=== PATIENT | male | born 1985 | race Hispanic/Latino ===

== ENCOUNTER 2021-07-27 11:54 | Emergency (ER) | payer BC ==
[2021-07-27 13:48] LABS: Basophils % (Auto) 0.1 % (0.0-1.8); Hematocrit 37.3 % (35.5-45.6); Hemoglobin 12.6 gm/dl (11.8-15.2); Lymphocytes % (Auto) 8.6 % (13.4-35.0); Mean Corpuscular HGB Conc 34 % (32-34); Mean Corpuscular Volume 87 fl (84-94); Monocytes # (Auto) 0.3 K/mm3 (0.0-0.8); Monocytes % (Auto) 2.8 % (0.0-7.3); Platelet Count 214 K/mm3 (140-440); Red Blood Count 4.28 M/mm3 (3.65-5.03); Red Cell Distribution Width 13.5 % (13.2-15.2)
[2021-07-27 14:10] LABS: Alanine Aminotransferase 19 units/L (7-56); Albumin 4.4 g/dL (3.9-5); BUN/Creatinine Ratio 14; Blood Urea Nitrogen 10 mg/dL (9-20); Calcium 9.3 mg/dL (8.4-10.2); Hemolysis Index 3
[2021-07-28 06:25] VITALS: BP 155/124
== END 2021-07-28 05:49 | disposition left against medical advice (07) ==
LOC: ED 11:54
DX: K92.0 Hematemesis (principal); Z53.21 Procedure and treatment not carried out due to patient leaving prior to being seen by health care provider
CPT/HCPCS: 36415; 80053; 83690; 85025

== ENCOUNTER 2021-07-28 05:43 | Emergency (ER) | payer BC ==
[2021-07-28] MEDS ORDERED: ONDANSETRON 4 MG/2 ML INJ IV ONE (14:28)
[2021-07-28] MEDS ORDERED: SODIUM CHLORIDE 0.9% 1000 ML 1,000 ML IV ONE (14:28)
[2021-07-28] MEDS ORDERED: FAMOTIDINE 20 MG/2 ML INJ IV ONE (14:28)
[2021-07-28] MEDS ORDERED: MORPHINE 4 MG/1 ML INJ IV ONE (14:28)
[2021-07-28 14:58] LABS: Basophils % (Auto) 0.3 % (0.0-1.8); Hematocrit 41.3 % (35.5-45.6); Hemoglobin 14.2 gm/dl (11.8-15.2); Lymphocytes % (Auto) 7.7 % (13.4-35.0); Mean Corpuscular HGB Conc 34 % (32-34); Mean Corpuscular Volume 87 fl (84-94); Monocytes # (Auto) 0.5 K/mm3 (0.0-0.8); Monocytes % (Auto) 4.2 % (0.0-7.3); Platelet Count 264 K/mm3 (140-440); Red Blood Count 4.77 M/mm3 (3.65-5.03); Red Cell Distribution Width 14.2 % (13.2-15.2)
[2021-07-28 15:24] LABS: Bilirubin,Urine NEG (Negative); Blood,Urine NEG (Negative); Color,Urine Yellow (Yellow); Protein,Urine <15 mg/dL mg/dL (Negative); Urobilinogen,Urine < 2.0 mg/dL (<2.0)
[2021-07-28 15:25] LABS: Mucus,Urine FEW /HPF
[2021-07-28 15:42] VITALS: BP 122/80
[2021-07-28 16:25] LABS: BUN/Creatinine Ratio TNR; Bilirubin,Direct TNR mg/dL (0-0.2); Blood Urea Nitrogen TNR mg/dL (9-20); Calcium TNR mg/dL (8.4-10.2)
[2021-07-28 16:26] LABS: Alanine Aminotransferase TNR units/L (7-56); Albumin TNR g/dL (3.9-5)
[2021-07-28 16:27] LABS: Hemolysis Index TNR
--- NOTE | 2021-07-28 16:54 | Emergency Department Report ---
<REYNA DURON - Last Filed: 07/28/21 17:25> ED Abdominal Pain HPI - General Chief Complaint: Abdominal Pain Stated Complaint: VOMITING BLOOD Time Seen by Provider: 07/28/21 14:14 Source: patient Mode of arrival: Ambulatory Limitations: No Limitations - History of Present Illness Initial Comments: This is a 36-year-old male nontoxic, well nourished in appearance, no acute signs of distress presents to the ED with c/o of nausea and vomiting and abdominal pain several days. Patient describes vomiting as food content and yellow gastric acid and dark blood seen. Patient describes abdominal pain as cramping and aching with level of 8/10 diffuse. Stated has these symptoms during IBS flare. Patient denies chest pain, short of breath, fever, blood in stool, chills, headache, stiff neck, numbness or tingling. Denies any blood in stool. Patient denies any recent travels. Denies any allergies. MD Complaint: abdominal pain -: days(s) Location: diffuse Radiation: none Migration to: no migration Severity scale (0 -10): 8 Quality: cramping, aching Consistency: constant Improves With: nothing Worsens With: nothing Associated Symptoms: nausea, vomiting, hematemesis. denies: diarrhea, fever, chills, constipation, dysuria, hematochezia, melena, hematuria, anorexia, syncope - Related Data Previous Rx's Medication Instructions Recorded Last Taken Type Ondansetron [Zofran Odt] 4 mg PO Q8HR #20 tab.rapdis 07/28/21 Unknown Rx Allergies Allergy/AdvReac Type Severity Reaction Status Date / Time No Known Allergies Allergy Verified 07/27/21 12:24 ED Review of Systems Comment: All other systems reviewed and negative Constitutional: denies: chills, fever Eyes: denies: eye pain, eye discharge, vision change ENT: denies: ear pain, throat pain Respiratory: denies: cough, shortness of breath, wheezing Cardiovascular: denies: chest pain, palpitations Endocrine: no symptoms reported Gastrointestinal: abdominal pain, nausea, vomiting, hematemesis. denies: diarrhea, constipation, melena, hematochezia Genitourinary: denies: urgency, dysuria Musculoskeletal: denies: back pain, joint swelling, arthralgia Skin: denies: rash, lesions Neurological: denies: headache, weakness, paresthesias Psychiatric: denies: anxiety, depression Hematological/Lymphatic: denies: easy bleeding, easy bruising ED Past Medical Hx - Past Medical History Previous Medical History?: Yes Additional medical history: IBS - Surgical History Past Surgical History?: No - Social History Smoking Status: Unknown if ever smoked Substance Use Type: None - Medications Home Medications: Home Medications Medication Instructions Recorded Confirmed Last Taken Type Ondansetron [Zofran Odt] 4 mg PO Q8HR #20 tab.rapdis 07/28/21 Unknown Rx ED Physical Exam - General Limitations: No Limitations General appearance: alert, in no apparent distress - Head Head exam: Present: atraumatic, normocephalic - Eye Eye exam: Present: normal appearance - Neck Neck exam: Present: normal inspection, full ROM. Absent: lymphadenopathy - Respiratory Respiratory exam: Present: normal lung sounds bilaterally. Absent: respiratory distress, wheezes, rales, rhonchi, stridor, chest wall tenderness, accessory muscle use, decreased breath sounds, prolonged expiratory - Cardiovascular Cardiovascular Exam: Present: regular rate, normal rhythm, normal heart sounds. Absent: bradycardia, tachycardia, irregular rhythm, systolic murmur, diastolic murmur, rubs, gallop - GI/Abdominal GI/Abdominal exam: Present: soft, tenderness (diffuse), normal bowel sounds. Absent: distended, guarding, rebound, rigid, diminished bowel sounds - Extremities Exam Extremities exam: Present: normal inspection, full ROM, normal capillary refill. Absent: tenderness - Back Exam Back exam: Present: normal inspection, full ROM. Absent: tenderness, CVA tenderness (R), CVA tenderness (L), muscle spasm, paraspinal tenderness, vertebral tenderness, rash noted - Neurological Exam Neurological exam: Present: alert, oriented X3, normal gait - Psychiatric Psychiatric exam: Present: normal affect, normal mood - Skin Skin exam: Present: warm, dry, intact, normal color. Absent: rash ED Course - Reevaluation(s) Reevaluation #1: 07/28/21 16:54 Patient is speaking in full sentences with no signs of distress noted. - Consultations Consultation #1: 07/28/21 17:22 At this time patient is signed out to Nasreen Richards for further evaluation, treatment, and appropriate disposition. ED Medical Decision Making - Lab Data Result diagrams: 07/28/21 14:42 07/28/21 14:42 Lab Results 07/28/21 07/28/21 07/28/21 Range/Units 14:42 14:42 14:42 WBC 12.4 H (4.5-11.0) K/mm3 RBC 4.77 (3.65-5.03) M/mm3 Hgb 14.2 (11.8-15.2) gm/dl Hct 41.3 (35.5-45.6) % MCV 87 (84-94) fl MCH 30 (28-32) pg MCHC 34 (32-34) % RDW 14.2 (13.2-15.2) % Plt Count 264 (140-440) K/mm3 Lymph % (Auto) 7.7 L (13.4-35.0) % [place] % (Auto) 4.2 (0.0-7.3) % Eos % (Auto) 0.0 (0.0-4.3) % Baso % (Auto) 0.3 (0.0-1.8) % Lymph # (Auto) 1.0 L (1.2-5.4) K/mm3 [place] # (Auto) 0.5 (0.0-0.8) K/mm3 Eos # (Auto) 0.0 (0.0-0.4) K/mm3 Baso # (Auto) 0.0 (0.0-0.1) K/mm3 Seg Neutrophils % 87.8 H (40.0-70.0) % Seg Neutrophils # 10.9 H (1.8-7.7) K/mm3 Sodium TNR Potassium TNR Chloride TNR Carbon Dioxide TNR Anion Gap TNR BUN TNR Creatinine TNR Estimated GFR TNR BUN/Creatinine Ratio TNR Glucose TNR Calcium TNR Total Bilirubin TNR Direct Bilirubin TNR Indirect Bilirubin TNR AST TNR ALT TNR Alkaline Phosphatase TNR Total Protein TNR Albumin TNR Albumin/Globulin Ratio TNR Lipase 42 (13-60) units/L Urine Color (Yellow) Urine Turbidity (Clear) Urine pH (5.0-7.0) Ur Specific [place] (1.003-1.030) Urine Protein (Negative) mg/dL Urine Glucose (UA) (Negative) mg/dL Urine Ketones (Negative) mg/dL Urine Blood (Negative) Urine Nitrite (Negative) Urine Bilirubin (Negative) Urine Urobilinogen (<2.0) mg/dL Ur Leukocyte Esterase (Negative) Urine WBC (Auto) (0.0-6.0) /HPF Urine RBC (Auto) (0.0-6.0) /HPF Urine Mucus /HPF 07/28/21 Range/Units Unknown WBC (4.5-11.0) K/mm3 RBC (3.65-5.03) M/mm3 Hgb (11.8-15.2) gm/dl Hct (35.5-45.6) % MCV (84-94) fl MCH (28-32) pg MCHC (32-34) % RDW (13.2-15.2) % Plt Count (140-440) K/mm3 Lymph % (Auto) (13.4-35.0) % [place] % (Auto) (0.0-7.3) % Eos % (Auto) (0.0-4.3) % Baso % (Auto) (0.0-1.8) % Lymph # (Auto) (1.2-5.4) K/mm3 [place] # (Auto) (0.0-0.8) K/mm3 Eos # (Auto) (0.0-0.4) K/mm3 Baso # (Auto) (0.0-0.1) K/mm3 Seg Neutrophils % (40.0-70.0) % Seg Neutrophils # (1.8-7.7) K/mm3 Sodium Potassium Chloride Carbon Dioxide Anion Gap BUN Creatinine Estimated GFR BUN/Creatinine Ratio Glucose Calcium Total Bilirubin Direct Bilirubin Indirect Bilirubin AST ALT Alkaline Phosphatase Total Protein Albumin Albumin/Globulin Ratio Lipase (13-60) units/L Urine Color Yellow (Yellow) Urine Turbidity Clear (Clear) Urine pH 7.0 (5.0-7.0) Ur Specific [place] 1.012 (1.003-1.030) Urine Protein <15 mg/dl (Negative) mg/dL Urine Glucose (UA) Neg (Negative) mg/dL Urine Ketones Neg (Negative) mg/dL Urine Blood Neg (Negative) Urine Nitrite Neg (Negative) Urine Bilirubin Neg (Negative) Urine Urobilinogen < 2.0 (<2.0) mg/dL Ur Leukocyte Esterase Neg (Negative) Urine WBC (Auto) 1.0 (0.0-6.0) /HPF Urine RBC (Auto) 2.0 (0.0-6.0) /HPF Urine Mucus Few /HPF - Medical Decision Making 36-year-old male that presents with abdominal pain with nausea vomiting. Patient is stable and was examined by me. Vital signs at this time are stable. Patient signed out to Dr. Hanna during end of shift for further evaluation, treatment and appropriate disposition. At time of sign out, the patient does not seem toxic or ill in appearance. No acute signs of distress noted. Patient agrees to ED plan of care. No further questions noted by the patient. ED Disposition Clinical Impression: Nausea and vomiting, Abdominal pain, generalized Disposition: 01 HOME / SELF CARE / HOMELESS Condition: Stable Instructions: Nausea and Vomiting, Adult, Abdominal Pain, Adult, [id number] Referrals: PRIMARY CARE, [Primary Care Provider] - 3-5 Days <EMELY HANNA - Last Filed: 07/28/21 18:39> ED Review of Systems ROS: Stated complaint: VOMITING BLOOD Other details as noted in HPI ED Course Vital Signs 07/28/21 07/28/21 06:26 15:40 Temperature 97.9 F 98.6 F Pulse Rate 85 74 Respiratory 16 16 Rate Blood Pressure 154/99 Blood Pressure 122/80 [Left] O2 Sat by Pulse 98 98 Oximetry ED Medical Decision Making - Lab Data Result diagrams: 07/28/21 14:42 07/28/21 17:03 - Medical Decision Making CT abdomen and pelvis reveals prominent but nondilated fluid-filled loops of small bowel and fluid noted throughout the colon without localized mural thickening. Findings are nonspecific but may be seen with enterocolitis. On my examination patient is nontoxic in appearance. I reviewed her labs. WBC count 12. CMP grossly unremarkable. Patient is afebrile with stable vital signs. I discussed the results of today's visit with the Ms. Moreno. She is stable for discharge home with PCP follow-up within 1 week. Critical care attestation.: If time is entered above; I have spent that time in minutes in the direct care of this critically ill patient, excluding procedure time. ED Disposition Is pt being admited?: No Time of Disposition: 18:38
[2021-07-28 17:43] LABS: Alanine Aminotransferase 27 units/L (7-56); Albumin 5.2 g/dL (3.9-5); Blood Urea Nitrogen 12 mg/dL (9-20); Calcium 9.8 mg/dL (8.4-10.2); Hemolysis Index 175
[2021-07-28 17:47] LABS: BUN/Creatinine Ratio 20
--- NOTE | 2021-07-28 18:26 | Cat Scan Report ---
CT abdomen pelvis w con INDICATION / CLINICAL INFORMATION: abd pain with n/v. TECHNIQUE: Axial CT images were obtained through the abdomen and pelvis after 100 cc of Omnipaque [address] scans at this location are performed using CT dose reduction for ALARA by means of automated exposure control. COMPARISON: None available. FINDINGS: LOWER CHEST: No significant abnormality LIVER: Liver is enlarged, measuring 19 cm. There is suspected hepatic steatosis. GALLBLADDER/BILIARY TREE: No significant abnormality PANCREAS: No significant abnormality SPLEEN: No significant abnormality ADRENALS: No significant abnormality RIGHT KIDNEY / URETER: No significant abnormality LEFT KIDNEY / URETER: No significant abnormality URINARY BLADDER: Bladder is partially decompressed, though grossly unremarkable. REPRODUCTIVE ORGANS: No significant abnormality STOMACH / BOWEL: Prominent but nondilated fluid-filled loops of small bowel. No evidence of small bow el obstruction. There is fluid seen throughout the colon without colonic wall thickening or pericolon ic auditory stranding. Appendix is not visualized, though no secondary signs of appendicitis are iden tified. LYMPH NODES: No significant adenopathy. VASCULATURE: No significant abnormality. OTHER: No free air, free fluid, or focal fluid collection is identified. SKELETAL SYSTEM: No acute osseous findings. IMPRESSION: 1. Prominent but nondilated fluid-filled loops of small bowel and fluid noted throughout the colon wi thout localized mural thickening. Findings are nonspecific but may be seen with enterocolitis. 2. No other acute findings. Other incidental findings as above. Signer Name: Shayne Kumar MD Signed: 07/28/2021 6:22 PM Workstation Name: [id number]
== END 2021-07-28 19:00 | disposition home or self-care (01) ==
LOC: ED 05:43
DX: R10.84 Generalized abdominal pain (principal); R11.2 Nausea with vomiting, unspecified
CPT/HCPCS: 36415; 74177; 80048; 80053; 80076; 81001; 83690; 85025; 96361; 96374; 96375; 99284; J2270; J2405; J3490; J7030; Q9967